=== PATIENT | male | born 1990 | race Caucasian/White ===

== ENCOUNTER 2016-11-26 12:29 | Emergency (ER) | payer MEDICAID ==
[~2016-11-26] VITALS: Ht 180.3 cm; Wt 100.0 kg
[2016-11-26 12:30] VITALS: BP 137/80; PULSE 79; RESP 12; TEMP 98.1; O2SAT 97
[2016-11-26] MEDS ORDERED: ADDE20 PO (12:56)
--- NOTE | 2016-11-26 13:08 | PD ---
HPI Chief Complaint: Injury Time Seen by Provider: 13:04 Travel History International Travel<30 days: No Contact w/Intl Traveler<30days: No Traveled to known affect area: No History of Present Illness HPI 26-year-old male presents to the emergency department for evaluation of left wrist injury. The patient states that he originally fractured his left scaphoid in weightlifting injury February 2016. States that he had surgery to repair his scaphoid and LT ligament by a hand surgeon in June 2016. States that he is here visiting from [place] and 2 days ago he tripped and fell landing onto his outstretched left hand. States that since he tripped and fell he has had some sharp pain in his wrist. The patient still has a cast and pins in place from his surgery in June. States that he called his hand surgeon in [place] this morning and was told to come to the emergency department to have a CT of his wrist and to not remove his cast. The patient denies any head trauma or loss of consciousness. He denies any numbness or tingling, weakness, fever or chills, nausea, vomiting. No other complaints. [facility] Past Medical History Medical History: Denies Significant Hx Past Surgical History Other Surgery: Yes (left wrist surgery) Social History Alcohol Use: No Tobacco Use: No Allergies-Medications (Allergen,Severity, Reaction): Coded Allergies: Penicillin (Verified Allergy, Severe, Anaphylaxis, 11/26/16) Vancomycin (Verified Allergy, Severe, Anaphylaxis, 11/26/16) Reported Meds & Prescriptions Reported Meds & Active Scripts Active Reported Adderall (Amphetamine-Dextroamphetamine) 20 Mg Tab 20 Mg PO BID Avoid late evening doses. Space doses at least 4 to 6 hours if more than once/day dosing. Review of Systems Except as stated in HPI: all other systems reviewed are Neg Physical Exam Narrative GENERAL: Well-nourished and well-developed pleasant male patient in no acute distress who is nontoxic appearing. SKIN: Warm and dry. HEAD: Normocephalic and atraumatic. EYES: No injection, drainage, or hyphema noted. PERRLA. EOMI. ENT: No nasal drainage noted. Oropharynx is clear. NECK: Supple and the trachea is midline. CARDIOVASCULAR: Regular rate and rhythm. RESPIRATORY: Breath sounds are equal bilaterally with no accessory muscle use, wheezing, rhonchi, or crackles. MUSCULOSKELETAL: Left cast in place over wrist and forearm. Patient is full range of motion in all fingers with normal capillary refill and sensation. No obvious deformities, swelling, cyanosis, or ecchymosis is present throughout the upper and lower extremities. Patient has full range of motion without any signs of neurovascular compromise. NEUROLOGICAL: Awake, alert, and oriented. Normal speech and gait. Cranial nerves are grossly intact. Data Data Last Documented VS Vital Signs Date Time Temp Pulse Resp B/P Pulse Ox O2 Delivery O2 Flow Rate FiO2 11/26/16 12:30 98.1 79 12 137/[address] Wrist W/O Contrast (11/26/16 ) MDM Medical Decision Making Medical Screen Exam Complete: Yes Emergency Medical Condition: Yes Differential Diagnosis Sprain versus fracture versus pin displacement Narrative Course 26-year-old male presents to the emergency room for evaluation of left wrist injury. Patient is afebrile, vital signs are stable. CT scan of the left wrist has been ordered and is pending. CT scan of the wrist shows K wires traversing the scaphoid with good anatomic alignment. No complicating features are seen. No additional fractures and no evidence of refracture. I discussed these results with the patient. I did attempt to speak with the patient's hand surgeon in [place], I left a message with his medical records supervisor. Patient is stable for discharge to follow-up as an outpatient with his hand specialist. Patient verbalizes understanding and agreement with treatment plan. Diagnosis Primary Impression: Left wrist pain Referrals: Hand Surgeon Patient Instructions: General Instructions, Wrist Injury (ED) Additional Instructions: Follow-up with your hand specialist. Return to the ED for any acute worsening of symptoms. Med/Other Pt SpecificInfo: No Change to Meds Disposition: 01 DISCHARGE HOME Condition: Stable Jeannie Kapadia Nov 26, 2016 13:08
--- NOTE | 2016-11-26 14:25 | RADRPT ---
EXAM DATE/TIME: 11/26/2016 13:30 [facility] COMPARISON: No previous studies available for comparison. INDICATIONS : Scaphoid fracture repaired June 2016, patien fell again 2 days ago complains of increased pain left wrist RADIATION DOSE: 11.61 CTDIvol (mGy) MEDICAL HISTORY : None SURGICAL HISTORY : Left wrist ENCOUNTER: Initial ACUITY: 1 day PAIN SCALE: 6/10 LOCATION: Left wrist TECHNIQUE: Volumetric scanning of the wrist was performed. Using automated exposure control and adjustment of t he mA and/or kV according to patient size, radiation dose was kept as low as reasonably achievable to obtain optimal diagnostic quality images. FINDINGS: Exam is performed in cast material. There are wires traversing the scaphoid with good anatomic a lignment of the scaphoid. No evidence of fracture. There is normal alignment at the radiocarpal joint . Lucency involving the distal radius consistent with osseous donor site. Moderate adjacent soft tiss ue edema is noted. CONCLUSION: K wires traversing the scaphoid with good anatomic alignment. No complicating features are seen. No a dditional fractures are identified and no evidence of refracture.. Meg Newman MD on November 26, 2016 at 14:15 Board Certified Radiologist. This report was verified electronically.
== END 2016-11-26 15:07 | disposition home or self-care (01) ==
LOC: NEPB 12:29
DX: M25.532 Pain in left wrist (principal); W01.0XXA Fall on same level from slipping, tripping and stumbling without subsequent striking against object, initial encounter
CPT/HCPCS: 73200

== ENCOUNTER 2017-04-10 12:44 | Emergency (ER) | payer MEDICAID ==
[~2017-04-10] VITALS: Ht 180.3 cm; Wt 105.8 kg
[~2017-04-10 12:44] MED LIST: ADDE20 PO
[2017-04-10 12:48] VITALS: BP 152/83; PULSE 80; RESP 16; TEMP 99.6; O2SAT 97
[2017-04-10] MEDS ORDERED: SODIUM CHLORIDE 0.9% FLUSH 10 ML FLUSH IVF PRN (13:15)
[2017-04-10] MEDS ORDERED: IBUP-232 PO (13:21)
--- NOTE | 2017-04-10 13:21 | PD ---
HPI Chief Complaint: Musculoskeletal Complaint Time Seen by Provider: 12:54 Travel History International Travel<30 days: No Contact w/Intl Traveler<30days: No Traveled to known affect area: No History of Present Illness HPI The patient is a 27-year-old male who presents emergency department for left chest wall pain and left rib pain of one and a half weeks duration. 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 The patient states he turned rapidly to the left and then developed pain over the left lateral and inferior aspect of the rib cage. The pain is worse when he takes a deep breath, coughs, and moves in certain positions. He did complain of mild shortness of breath for the first several days which has improved. He denies any nausea, vomiting, or abdominal pain. He denies any history of coronary artery disease, hypertension, or hyperlipidemia. The patient is also concerned about a possible sexually transmitted infection after having sex with his girlfriend who complained of vaginal irritation for 3 days afterwards. He denies any dysuria or discharge. He denies his girlfriend have any similar symptoms. [facility] Past Medical History Medical History: Denies Significant Hx Diminished Hearing: No Tetanus Vaccination: < 5 Years Influenza Vaccination: No Past Surgical History Other Surgery: Yes (left wrist surgery) Social History Alcohol Use: No Tobacco Use: No Substance Use: Yes (marijuana, weekly) Allergies-Medications (Allergen,Severity, Reaction): Coded Allergies: Penicillin (Verified Allergy, Severe, Anaphylaxis, 04/10/17) Vancomycin (Verified Allergy, Severe, Anaphylaxis, 04/10/17) Reported Meds & Prescriptions Reported Meds & Active Scripts Active No Active Prescriptions or Reported Medications Review of Systems Except as stated in HPI: all other systems reviewed are Neg General / Constitutional: No: Fever HENT: No: Lightheadedness Cardiovascular: Positive: Chest Pain or Discomfort Respiratory: Positive: Shortness of Breath Gastrointestinal: No: Nausea, Vomiting, Abdominal Pain Genitourinary: No: Dysuria, Discharge Physical Exam Narrative GENERAL: Awake, alert, very pleasant 27-year-old male who appears his stated age and is in no acute respiratory distress. SKIN: Focused skin assessment warm/dry. No stigmata of shingles. HEAD: Atraumatic. Normocephalic. EYES: Pupils equal and round. No scleral icterus. No injection or drainage. ENT: No nasal bleeding or discharge. Mucous membranes pink and moist. NECK: Trachea midline. No JVD. CARDIOVASCULAR: Regular rate and rhythm. No murmur appreciated. Palpation of the lateral inferior rib cage reproduces symptoms. RESPIRATORY: No accessory muscle use. Clear to auscultation. Breath sounds equal bilaterally. GASTROINTESTINAL: Abdomen soft, non-tender, nondistended. MUSCULOSKELETAL: No obvious deformities. No clubbing. No cyanosis. No edema. NEUROLOGICAL: Awake and alert. No obvious cranial nerve deficits. Motor grossly within normal limits. Normal speech. PSYCHIATRIC: Appropriate mood and affect; insight and judgment normal. Data Data Last Documented VS Vital Signs Date Time Temp Pulse Resp B/P Pulse Ox O2 Delivery O2 Flow Rate FiO2 04/10/17 12:48 99.6 80 16 152/83 97 Orders Chest, Single Ap (04/10/17 ) Gc And Chlamydia Pcr (04/10/17 13:01) Sodium Chloride 0.9% Flush (Ns Flush) (04/10/17 13:15) MDM Medical Decision Making Medical Screen Exam Complete: Yes Emergency Medical Condition: Yes Medical Record Reviewed: Yes Interpretation(s) Chest x-rays unremarkable Differential Diagnosis Differential diagnosis includes costochondritis, neuralgia, rib fracture, pneumothorax, pleural effusion, STI exposure. Narrative Course A chest x-ray was obtained. UA was sent for gonorrhea/chlamydia, however, patient has no current symptoms, therefore, will not be treated until results are obtained. X-rays unremarkable. The patient be discharged home on ibuprofen , advised to have activity as tolerated and follow-up with a primary physician. Diagnosis Primary Impression: Left-sided chest wall pain Patient Instructions: General Instructions Additional Instructions: Ibuprofen as directed. Activity as tolerated. Follow-up with a primary physician. Return if symptoms worsen or progress. Med/Other Pt SpecificInfo: Prescription(s) given Scripts Ibuprofen 600 Mg Ulb242 Mg PO Q6H PRN (Pain/Inflammation) #20 TAB Ref 0 Prov:Marcel Calderon MD 04/10/17 Disposition: 01 DISCHARGE HOME Condition: Stable Marcel Calderon MD April 10, 2017 13:21
--- NOTE | 2017-04-10 13:48 | RADHPO ---
EXAM DATE/TIME: 04/10/2017 13:03 [facility] COMPARISON: No previous studies available for comparison. 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 MEDICAL HISTORY : None. SURGICAL HISTORY : None. ENCOUNTER: Initial ACUITY: 1 day PAIN SCORE: 4/10 LOCATION: Left Ribs. FINDINGS: A single view of the chest demonstrates the lungs to be symmetrically aerated without evidence of mas s, infiltrate or effusion. The cardiomediastinal contours are unremarkable. Osseous structures are intact. CONCLUSION: No acute disease. Rinku Love MD on April 10, 2017 at 13:46 Board Certified Radiologist. This report was verified electronically.
[2017-04-10 18:37] LABS: CHLAMYDIA PCR NOT DETECTED (NOT DETECT); NEISSERIA PCR NOT DETECTED (NOT DETECT)
== END 2017-04-10 14:07 | disposition home or self-care (01) ==
LOC: PHEFT 12:44
DX: R07.89 Other chest pain (principal); R06.02 Shortness of breath; R05 Cough; Z88.0 Allergy status to penicillin
CPT/HCPCS: 71010; 87491; 87591; 99284

== ENCOUNTER 2017-10-22 10:42 | Emergency (ER) | payer MEDICAID, OTHER ==
[~2017-10-22] VITALS: Ht 182.9 cm; Wt 114.0 kg
[~2017-10-22 10:42] MED LIST changes: -ADDE20 PO; +IBUP-232 PO
[2017-10-22 10:47] VITALS: BP 136/60; PULSE 61; RESP 16; TEMP 97.4; O2SAT 97
--- NOTE | 2017-10-22 10:55 | PD ---
HPI Chief Complaint: Cold / Flu Symptoms Time Seen by Provider: 10:54 Travel History International Travel<30 days: No Contact w/Intl Traveler<30days: No Traveled to known affect area: No History of Present Illness HPI 27-year-old male presents the emergency department one week history of sore throat, postnasal drip, congestion, headache. Patient states congestion and cough is worse at night. Feels like he is "drowning". Patient has some chest congestion with productive cough. Denies wheezing. Denies shortness of breath. Denies heartburn. No significant fever chills. He denies ear pain. Patient states he is allergic to vancomycin and penicillin, but has taken amoxicillin in the past without difficulty. PFSH Past Medical History Diminished Hearing: No Past Surgical History Other Surgery: Yes (left wrist surgery) Social History Alcohol Use: No Tobacco Use: No Substance Use: Yes (marijuana, weekly) Allergies-Medications (Allergen,Severity, Reaction): Coded Allergies: penicillin G (Unverified Allergy, Severe, Anaphylaxis, 10/22/17) vancomycin (Unverified Allergy, Severe, Anaphylaxis, 10/22/17) Reported Meds & Prescriptions Reported Meds & Active Scripts Active Flonase Nasal [place] (Fluticasone Nasal [place]) 50 Mcg/Act [place] 100 Mcg EACH NARE BID Amoxicillin 875 Mg Tab 875 Mg PO BID 10 Days Ibuprofen 600 Mg Tab 600 Mg PO Q6H PRN Review of Systems Except as stated in HPI: all other systems reviewed are Neg General / Constitutional: No: Fever, Chills Eyes: No: Visual changes HENT: Positive: Headaches, Sore Throat, Rhinitis, Rhinorrhea, Congestion, No: Vertigo, Lightheadedness, Nosebleed, Neck Stiffness, Neck Pain, Gingival Bleeding, Dental Difficulties, Ear Discharge, Earache Cardiovascular: No: Chest Pain or Discomfort Respiratory: Positive: Cough, Sneezing, No: Shortness of Breath, Wheezing, Orthopnea, Hemoptysis, Night Sweats, Pleuritic Pain Gastrointestinal: No: Nausea, Vomiting, Diarrhea, Abdominal Pain Genitourinary: No: Dysuria Musculoskeletal: No: Pain Skin: No Rash Neurologic: No: Weakness Psychiatric: No: Depression Endocrine: No: Polydipsia Hematologic/Lymphatic: No: Easy Bruising Physical Exam Narrative GENERAL: Patient appears mildly ill but not septic. He has a muffled voice symptoms develop sinusitis. SKIN: Warm and dry. Normal color. Normal turgor. No rash. HEAD: Atraumatic. Normocephalic. EYES: Pupils equal and round. No scleral icterus. No injection or drainage. ENT: No nasal bleeding or discharge. Mucous membranes pink and moist. TMs are dull bilaterally without injection. Sinuses are tender to palpation and percussion bilaterally both frontal and maxillary sinuses. Patient has moderate nasal drainage. Posterior pharynx is raw appearing, Erythematous, with cobblestoning and postnasal drip noted. Tonsils are unremarkable. Uvula is midline. NECK: Trachea midline. Supple nontender without significant lymphadenopathy. CARDIOVASCULAR: Regular rate and rhythm. RESPIRATORY: No accessory muscle use. Clear to auscultation. Breath sounds equal bilaterally. GASTROINTESTINAL: Abdomen soft, non-tender, nondistended. Hepatic and splenic margins not palpable. MUSCULOSKELETAL: Extremities without clubbing, cyanosis, or edema. No obvious deformities. NEUROLOGICAL: Awake and alert. No obvious cranial nerve deficits. Motor grossly within normal limits. Five out of 5 muscle strength in the arms and legs. Normal speech. PSYCHIATRIC: Appropriate mood and affect; insight and judgment normal. Data Data Last Documented VS Vital Signs Date Time Temp Pulse Resp B/P (MAP) Pulse Ox O2 Delivery O2 Flow Rate FiO2 10/22/17 10:47 97.4 61 16 136/60 (85) 97 MDM Medical Decision Making Medical Screen Exam Complete: Yes Emergency Medical Condition: Yes Differential Diagnosis Sore throat. Sinusitis. Postnasal drip. Cough. Narrative Course Patient is felt to have acute sinusitis with postnasal drip. Patient treated with amoxicillin 875 twice a day 10 days. Patient treated with Flonase nasal spray 2 sprays each nostril daily. Note for school is given. Patient follow up if symptoms do not improve or worsen. Diagnosis Primary Impression: Sinusitis, acute Qualified Codes: J01.40 - Acute pansinusitis, unspecified Referrals: Primary Care Physician Patient Instructions: General Instructions, Rhinosinusitis (ED) Departure Forms: School Release Return to School Date: Oct 23, 2017 Additional Instructions: Patient is felt to have acute sinusitis with postnasal drip. Patient treated with amoxicillin 875 twice a day 10 days. Patient treated with Flonase nasal spray 2 sprays each nostril daily. Note for school is given. Patient follow up if symptoms do not improve or worsen. Med/Other Pt SpecificInfo: Prescription(s) given Scripts Fluticasone Nasal [place] (Flonase Nasal [place]) 50 Mcg/Act [place] 100 MCG EACH NARE BID for Allergies, #1 BOTTLE 0 Refills Prov: Eder Lamas MD 10/22/17 Amoxicillin (Amoxicillin) 875 Mg Tab 875 MG PO BID for Infection for 10 Days, #20 TAB 0 Refills Prov: Eder Lamas MD 10/22/17 Disposition: 01 DISCHARGE HOME Condition: Stable Nikko Benitez Oct 22, 2017 10:55
[2017-10-22] MEDS ORDERED: FLUT1SPR5 EACH NARE (10:59)
[2017-10-22] MEDS ORDERED: AMOX875T PO (10:59)
[2017-10-22] MEDS ORDERED: ADDE10 PO (11:00)
== END 2017-10-22 11:14 | disposition home or self-care (01) ==
LOC: PHEFT 10:42
DX: J01.40 Acute pansinusitis, unspecified (principal); R51 Headache; F12.10 Cannabis abuse, uncomplicated
CPT/HCPCS: 99283

== ENCOUNTER 2017-12-10 17:03 | Emergency (ER) | payer OTHER ==
[~2017-12-10] VITALS: Ht 180.3 cm; Wt 112.3 kg
[~2017-12-10 17:03] MED LIST changes: +ADDE10 PO; +AMOX875T PO; +FLUT1SPR5 EACH NARE
[2017-12-10 17:11] VITALS: BP 134/62; PULSE 73; RESP 15; TEMP 98; O2SAT 96
[2017-12-10] MEDS ORDERED: ERYTOIN10 RIGHT EYE (18:13)
[2017-12-10] MEDS ORDERED: ACYC800T PO (18:13)
--- NOTE | 2017-12-10 18:13 | PD ---
HPI Chief Complaint: Eye Problems/Injury Time Seen by Provider: 17:26 Travel History International Travel<30 days: No Contact w/Intl Traveler<30days: No Traveled to known affect area: No History of Present Illness HPI This is a 27-year-old male here with what he thought was possibly pinkeye. He reports he noticed a small pimple-like lesion to the right side of his face near his eyelid which then spread to several more small lesions to the lower lid. Today his eye became red with crusting of the lashes.. He has no eye pain. No visual changes. Symptom severity is moderate. No aggravating or alleviating factors. PFSH Past Medical History ADHD: Yes Diminished Hearing: No Tetanus Vaccination: Unknown ?: Not Past Surgical History Other Surgery: Yes (BILATERAL wrist surgery, HAMSTRING REPAIR) Social History Alcohol Use: No Tobacco Use: No Substance Use: Yes (marijuana, weekly) Allergies-Medications (Allergen,Severity, Reaction): Coded Allergies: penicillin G (Verified Allergy, Severe, Anaphylaxis, 12/10/17) vancomycin (Verified Allergy, Severe, Anaphylaxis, 12/10/17) Reported Meds & Prescriptions Reported Meds & Active Scripts Active Erythromycin Opth Oint 5 Mg/Gm Oint 1 Applic RIGHT EYE QID Acyclovir 800 Mg Tab 800 Mg PO 5 TIMES A DAY 7 Days Reported Adderall (Amphetamine-Dextroamphetamine) 10 Mg Tab 10 Mg PO DIRECTED Take 10 mg in the morning & 5 mg (1/2 tab) at noon. Review of Systems Except as stated in HPI: all other systems reviewed are Neg General / Constitutional: No: Fever Eyes: Positive: Redness HENT: No: Headaches Physical Exam Narrative GENERAL: Alert and well-appearing 27-year-old male SKIN: Warm and dry. HEAD: Normocephalic. EYES: Mild right eye injection. 3 erythematous vesicular-like lesions lateral to the right lower lid. Crusting noted at right eyelashes. Pupils equal, round , reactive to light. EOMs intact. Cornea clear. No fluorescein dye uptake. No dendritic pattern. NECK: Supple. No lymphadenopathy. CARDIOVASCULAR: Regular rate and rhythm RESPIRATORY: Breath sounds equal bilaterally. No accessory muscle use. Data Data Last Documented VS Orders Orders Ed Discharge Order (12/10/17 18:15) [facility] Medical Decision Making Medical Screen Exam Complete: Yes Emergency Medical Condition: Yes Differential Diagnosis Conjunctivitis, herpes zoster, herpes keratitis Narrative Course This is a 27-year-old male here with what he thought was possibly pinkeye. He reports he noticed a small pimple-like lesion to the right side of his face near his eyelid which then spread to several more small lesions to the lower lid. Today his eye became red with crusting of the lashes.. He has no eye pain. No visual changes. I believe this is conjunctivitis. This is concerning for herpes zoster given symptoms originated by dermal lesions near the eye. Exam he has moderate injection to the right eye. Pupils equal, round , reactive to light. EOMs are painless and intact. Normal visual acuity. No fluorescein dye uptake or dendritic patterns. Patient will be treated for both conjunctivitis with erythromycin ophthalmic ointment and antivirals. He is to follow-up with his change number operator for morning. He agrees to this plan. He verbalizes understanding of the importance of this follow-up. Diagnosis Primary Impression: Conjunctivitis Qualified Codes: H10.31 - Unspecified acute conjunctivitis, right eye Referrals: Flaquita Young MDrooming house operator Additional Instructions: Medications as prescribed. Make appointment for follow-up with change number operator tomorrow. Return if he developed new or worsening symptoms such as eye pain or visual changes Scripts Erythromycin Opth Oint (Erythromycin Opth Oint) 5 Mg/Gm Oint 1 APPLIC RIGHT EYE QID for Infection, #1 TUBE 0 Refills Prov: Chrystal Shepherd 12/10/17 Acyclovir (Acyclovir) 800 Mg Tab 800 MG PO 5 TIMES A DAY for Mgmt Viral Infection for 7 Days, TAB 0 Refills Prov: Chrystal Shepherd 12/10/17 Disposition: 01 DISCHARGE HOME Condition: Stable Chrystal Shepherd Dec 10, 2017 18:13
== END 2017-12-10 18:19 | disposition home or self-care (01) ==
LOC: PHED 17:03 → PHEFT 18:19
DX: H10.31 Unspecified acute conjunctivitis, right eye (principal); F90.9 Attention-deficit hyperactivity disorder, unspecified type; Z88.0 Allergy status to penicillin; Z88.1 Allergy status to other antibiotic agents
CPT/HCPCS: 99284